=== PATIENT | male | born 1975 | race Two or more races ===

== ENCOUNTER → 2017-01-26 | Outpatient (REF) | payer OTHER, SELFPAY | LOC: M SFHCLERA 10:26 | PROVIDERS: ATTEND Physician Assistant | DX: R30.0 Dysuria (principal) ==

== ENCOUNTER → 2017-03-18 | Outpatient (REF) | payer OTHER ==
[2017-03-18 17:37] LABS: MEAN CORPUSCULAR HEMOGLOBIN 31.8 pg (27.0-33.0); MEAN CORPUSCULAR HGB CONC 34.2 g/dl (32.0-36.5); MEAN CORPUSCULAR VOLUME 93.1 fl (80.0-96.0); RED CELL DISTRIBUTION WIDTH 12.1 % (11.5-14.5); WHITE BLOOD COUNT 6.6 K/mm3 (4.0-10.0)
[2017-03-18 19:46] LABS: ALBUMIN 4.2 GM/DL (3.2-5.2); ALBUMIN/GLOBULIN RATIO 1.62 (1.00-1.93); BILIRUBIN,TOTAL 0.6 MG/DL (0.2-1.0); CALCIUM LEVEL 8.3 MG/DL (8.5-10.1); CREATININE FOR GFR 1.52 MG/DL (0.70-1.30); GLOMERULAR FILTRATION RATE 54.1 (>60); POTASSIUM SERUM 4.3 MEQ/L (3.5-5.1); TOTAL PROTEIN 6.8 GM/DL (6.4-8.2)
== END ==
LOC: M SFHCLERA 14:49
PROVIDERS: ATTEND Family Medicine
DX: N50.812 Left testicular pain (principal)

== ENCOUNTER → 2017-03-26 | Outpatient (CLI) | payer OTHER ==
--- NOTE | 2017-03-26 13:21 | REP ---
Scrotal ultrasound including Doppler ultrasound assessment: The testes are normal size. Right testis measures 4.0 x 2.3 x 2.8 cm. Left testis measures 4.2 x 2.1 x 2.8 cm. There are no testicular masses. With Doppler assessment there is vascular flow in both testes with the Doppler resistive index of the intraparenchymal arteries on the right measuring 0.56 and the left 0.54. With Doppler assessment there is no varicocele on the right or the left. There is a stricture parenchyma is homogeneous bilaterally. There are a few micro calcifications. This is nonspecific. However, consideration might be given to periodic scrotal ultrasound surveillance for testicular masses. Given the microcalcifications. The right epididymal head is unremarkable. The left epididymal head contains a 2.2 mm cyst and is otherwise unremarkable. There is a small right hydrocele. Impression: Small right hydrocele. No testicular mass. There are testicular microcalcifications, therefore, consideration might be given to periodic scrotal ultrasound surveillance. No varicocele. 2.2 mm left epididymal head cyst. There is vascular flow in both testes. Signed by Audi Longo MD 03/26/2017 12:02 P
== END ==
LOC: M RAD 10:32
PROVIDERS: ATTEND Family Medicine
DX: N50.812 Left testicular pain (principal); I86.1 Scrotal varices; N43.3 Hydrocele, unspecified; N50.3 Cyst of epididymis

== ENCOUNTER → 2017-04-23 | Outpatient (REF) | payer OTHER | LOC: M SFHCLERA 08:07 | PROVIDERS: ATTEND Family Medicine | DX: Z53.8 Procedure and treatment not carried out for other reasons (principal); N28.9 Disorder of kidney and ureter, unspecified ==

== ENCOUNTER → 2017-04-24 | Outpatient (REF) | payer OTHER ==
[2017-04-24 12:18] LABS: ANION GAP 8 MEQ/L (8-16); BLOOD UREA NITROGEN 10 MG/DL (7-18); CARBON DIOXIDE LEVEL 29 MEQ/L (21-32); CHLORIDE LEVEL 103 MEQ/L (98-107); CREATININE FOR GFR 0.96 MG/DL (0.70-1.30); GLOMERULAR FILTRATION RATE > 60.0 (>60); GLUCOSE, FASTING 87 MG/DL (70-105); POTASSIUM SERUM 4.1 MEQ/L (3.5-5.1); SODIUM LEVEL 140 MEQ/L (136-145)
== END ==
LOC: M SFHCLERA 07:54
PROVIDERS: ATTEND Family Medicine
DX: N28.9 Disorder of kidney and ureter, unspecified (principal)

== ENCOUNTER → 2017-04-27 | Outpatient (REF) | payer OTHER | LOC: M SMT 13:03 | PROVIDERS: ATTEND Nurse Practitioner Women's Health | DX: N50.819 Testicular pain, unspecified (principal) ==